=== PATIENT | female | born 1945 ===

== ENCOUNTER 2018-01-26 07:30 | Inpatient (IN) | payer OTHER ==
[~2018-01-26] VITALS: Ht 152.4 cm; Wt 81.6 kg
[2018-01-26] MEDS ORDERED: SYNTHROID88 MCG PO (10:18)
[2018-01-26] MEDS ORDERED: NORVASC5 MG PO (10:18)
[2018-01-26] MEDS ORDERED: COZAAR100 MG PO (10:18)
[2018-01-26] MEDS ORDERED: AMBIEN10 MG PO (10:19)
[2018-01-26] MEDS ORDERED: CYMBALTA60 MG PO (10:19)
[2018-01-26] MEDS ORDERED: XANAX XR1 MG PO (10:19)
[2018-01-26] MEDS ORDERED: IBUPROFEN200 M1 PO (10:20)
[2018-01-26] MEDS ORDERED: GABAPENTIN300 MG PO (10:20)
[2018-02-02] MEDS ORDERED: PERCOCET 5-3251 EACH PO (06:50)
[2018-02-02] MEDS ORDERED: INTEGRA PLUS C1 EACH PO (06:50)
[2018-02-02] MEDS ORDERED: XARELTO10 MG PO (06:50)
[2018-02-02] MEDS ORDERED: CEFADROXIL500 MG PO (06:50)
== END 2018-02-02 12:37 | disposition home or self-care (01) | DRG 483 ==
LOC: O/R 02-01 06:52 → SURH 02-01 06:52 → SURG 02-01 07:30 → SURH 02-01 18:03
PROVIDERS: Orthopaedic Surgery Sports Medicine
PROC: 0L820ZZ Division of Left Shoulder Tendon, Open Approach (ICD-10-PCS; 2018-02-01)
PROC: 0RRK00Z Replacement of Left Shoulder Joint with Reverse Ball and Socket Synthetic Substitute, Open Approach (ICD-10-PCS; principal; 2018-02-01 09:30)
DX: M19.012 Primary osteoarthritis, left shoulder (principal); M75.122 Complete rotator cuff tear or rupture of left shoulder, not specified as traumatic; M65.812 Other synovitis and tenosynovitis, left shoulder; I10 Essential (primary) hypertension